=== PATIENT | male | born 1975 | race Caucasian/White ===

== ENCOUNTER 2017-01-31 06:39 | Emergency (ER) | payer OTHER, BC ==
[~2017-01-31] VITALS: Ht 172.7 cm; Wt 78.0 kg
[2017-01-31 06:46] VITALS: TEMP 36.4; Ht 172.7 cm; Wt 78.0 kg
[2017-01-31] MEDS ORDERED: MoRPHine SULFATE 10 MG/ML CARP/VIAL IV PRN (07:00)
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
[2017-01-31 07:18] LABS: HEMATOCRIT 48.4 % (42-52); MEAN CELL VOLUME 89.1 fL (80-100); MEAN CORPUSCULAR HEMOGLOBIN 29.3 pg (25-34); MEAN CORPUSCULAR HGB CONC 32.9 g/dl (32-36); MEAN PLATELET VOLUME 9.9 fL (7.4-10.4); PLATELET COUNT 202 K/uL (130-400); RED BLOOD COUNT 5.43 M/uL (4.7-6.1); WHITE BLOOD COUNT 10.42 K/uL (4.8-10.8)
[2017-01-31 07:25] VITALS: O2SAT 96
[2017-01-31 07:34] LABS: BUN/CREATININE RATIO 13.2 (10-20); CALCIUM 8.5 mg/dl (8.5-10.1); CREATININE 1.2 mg/dl (0.60-1.40); POTASSIUM 4.8 mmol/L (3.5-5.1)
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
[2017-01-31] MEDS ORDERED: LIDOCAINE/EPINEPH/TETRACAINE 1 EA SYR ONE (09:01)
[2017-01-31 09:21] LABS: URINE APPEARANCE CLEAR (CLEAR); URINE BILIRUBIN NEG (NEG); URINE COLOR YELLOW; URINE NITRITE NEG (NEG); URINE PH 7.5 (4.5-7.5); UROBILINOGEN NEG (NEG); ZZUR CULT IF INDIC CLEAN CATCH NO
[2017-01-31 09:24] LABS: MANUAL MICROSCOPIC REQUIRED? NO; REVIEW REQ? NO
[2017-01-31] MEDS ORDERED: OPTIRAY 320 IV PRN ×2 (09:30)
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
[2017-01-31] MEDS ORDERED: IBUP-1450 PO (10:50)
[2017-01-31 11:05] VITALS: BP 124/83; PULSE 100; O2SAT 97
[2017-02-13] MEDS ORDERED: CALC1TAB9 PO (14:26)
[2017-02-14] MEDS ORDERED: OXYC-57 PO (09:05)
== END 2017-01-31 11:05 | disposition home or self-care (01) ==
LOC: C.EDB 06:41
DX: S42.024A Nondisplaced fracture of shaft of right clavicle, initial encounter for closed fracture (principal); T14.8 Other injury of unspecified body region; V20.4XXA Motorcycle driver injured in collision with pedestrian or animal in traffic accident, initial encounter; Y92.488 Other paved roadways as the place of occurrence of the external cause; Z80.9 Family history of malignant neoplasm, unspecified; Z83.3 Family history of diabetes mellitus; Z82.49 Family history of ischemic heart disease and other diseases of the circulatory system; Z84.1 Family history of disorders of kidney and ureter

== ENCOUNTER → 2017-02-01 | Outpatient (CLI) | payer OTHER, BC ==
[~2017-02-01] MED LIST: CALC1TAB9 PO; IBUP-1450 PO; OXYC-57 PO
== END | disposition home or self-care (01) ==
LOC: C.RDSM 09:57
PROVIDERS: ATTEND Physical Medicine & Rehabilitation Sports Medicine
DX: S42.021A Displaced fracture of shaft of right clavicle, initial encounter for closed fracture (principal); X58.XXXA Exposure to other specified factors, initial encounter

== ENCOUNTER → 2017-02-12 | Outpatient (CLI) | payer OTHER, BC | END | disposition home or self-care (01) | LOC: C.RDSM 12:01 | PROVIDERS: ATTEND Physical Medicine & Rehabilitation Sports Medicine | DX: S42.001A Fracture of unspecified part of right clavicle, initial encounter for closed fracture (principal); M25.532 Pain in left wrist; R10.2 Pelvic and perineal pain; V29.9XXA Motorcycle rider (driver) (passenger) injured in unspecified traffic accident, initial encounter ==

== ENCOUNTER → 2017-02-14 | Day surgery (SDC) | payer OTHER, BC ==
[2017-02-13 14:26] VITALS: Ht 172.7 cm; Wt 77.3 kg
[~2017-02-14] VITALS: Ht 172.7 cm; Wt 77.3 kg
[~2017-02-14] MED LIST changes: +ATROPINE SULFATE 0.1 MG/ML 5ML SYR IV PRN; +BUPIVACAINE 0.5 % 5 MG/1 ML MPF 30ML VIAL ONE; +BUPIVACAINE/EPINEPHRINE 0.5% MPF 1:200,000 10 ML VIAL ONE; +CEFAZOLIN 2000 MG/60 ML D5W IV SCH; +CEFAZOLIN SOD 1 GM VIAL ONE; +CEFAZOLIN SOD 1000MG/55 ML D5W IV SCH; +DEXAMETHASONE SOD INJ 4 MG/ML VIAL ONE; +EpHEDrine SULFATE INJ 50 MG/ML AMP IV PRN; +FENTANYL CITRATE INJ 50 MCG/1 ML 2 ML VIAL IV PRN; +FENTANYL CITRATE INJ 50 MCG/1 ML 2 ML VIAL ONE; +GLYCOPYRROLATE INJ 0.2 MG/ML VIAL ONE; +HYDROmorphone INJ 0.5 MG/0.5 ML SYR IV PRN; -IBUP-1450 PO; +LACTATED RINGER'S 1000ML 1,000 ML IV SCH; +MIDAZOLAM HCL 1 MG/ML 2ML VIAL ONE; +NEOSTIGMINE METHYLSULFATE 5 MG/5 ML SYR ONE; +ONDANSETRON INJ 2 MG/ML 2 ML VIAL IV PRN; +ONDANSETRON INJ 2 MG/ML 2 ML VIAL ONE; +OXYCODONE/ACETAMINOPHEN 5-325 TAB PO PRN; +PHENYLEPHRINE HCL INJ 10 MG/ML VIAL ONE; +POVIDONE-IODINE OP SOLN 30 ML BTL ONE; +PROMETHAZINE HCL INJ 6.25 MG in SODIUM CHLORIDE 0.9% 50ML 50 ML IV PRN; +PROPOFOL IV EMULSION 10 MG/ML 20 ML VIAL IV ONE; +SODIUM CHLORIDE 0.9% 1000ML 1,000 ML IV SCH
--- NOTE | 2017-02-14 09:03 | Discharge Instructions-SurgCtr ---
Discharge Instructions Date of Service Feb 14, 2017. Visit Reason for Visit: Right Clavicle Fracture Discharge Discharge Diagnosis / Problem: right clavicle fracture Discharge Goals Goal(s): Decrease discomfort, Improve function, Increase independence Activity Recommendations Activity Limitations: per Instructions/Follow-up section Weightbearing Status: Right non-weightbearing (right upper extremity) Anesthesia . Post Anesthesia Instructions: If you have had General Anesthesia or IV Sedation: * Do not drive today. * Resume driving when surgeon permits. * Do not make important decisions or sign legal documents today. * Call surgeon for: 1. Temperature elevations greater than 101 degrees F. 2. Uncontrollable pain. 3. Excessive bleeding. 4. Persistent nausea and vomiting. 5. Medication intolerance (nausea, vomiting or rash). * For nausea and vomiting use only clear liquids such as: tea, soda, bouillon until nausea subsides, then gradually increase diet as tolerated. * If you have any concerns or questions, call your surgeon's office. If physician is unavailable and it is an emergency, call 911 or go to the nearest emergency room. . Instructions / Follow-Up Instructions / Follow-Up DIET: * Resume previous diet. MEDICATIONS: * Please take your prescriptions as instructed at your pre-op appointment and/ or see medication discharge instructions listed above. * If concerns develop, call your physician's office at . SPECIAL CARE INSTRUCTIONS: * Ice to right shoulder as needed for pain/swelling * Elevate right hand above heart to relieve swelling * Keep sling on for comfort. Wear sling when sleeping and walking * No pushing, pulling, lifting with right arm * Okay to do gentle range of motion of right elbow, fingers, and wrist. * Keep dressing clean, dry, intact. * No driving until instructed by your physician. * Your surgical extremity may be discolored due to prepping agents used on the skin. A bluish-green tint is a normal variant and should not cause alarm. Call your doctor at [phone] if: * Temperature above 101 degrees * Pain not relieved by pain medicine ordered * There is increased drainage or redness from any incision * You have any unanswered questions, problems or concerns. FOLLOW UP VISIT: * If not already scheduled, please call the office at to schedule a follow-up appointment. * You will start physical therapy on 02/18/17 at 8:30 a.m. * You have a post op appointment with Vesta Ponce PA-C on 03/01/17 at 2:15 p.m. Diet Recommendations Home Diet: no limitations, resume previous diet Pending Studies Studies pending at discharge: no Medical Emergencies . Who to Call and When: Medical Emergencies: If at any time you feel your situation is an emergency, please call 911 immediately. . Non-Emergent Contact Non-Emergency issues call your: Surgeon Call Non-Emergent contact if: temperature is above 101, your pain is not controlled, your pain is concerning you, wound has increased drainage, wound has increased redness, wound has increased pain, you have any medication questions . . "Provider Documentation" section prepared by Vesta Ponce. . [place] Drug Monitoring Program Search Results: patient reviewed within database, no issues identified
--- NOTE | 2017-02-14 09:03 | History & Physical Bridge Note ---
H&P Re-Evaluation Bridge Note: I have examined the patient, reviewed the History & Physical and in the interval since the performance of the History & Physical I have noted the following changes of clinical significance: No changes noted
--- NOTE | 2017-02-14 12:26 | [facility] Post Operative Brief Note ---
Immediate Operative Summary Operative Date Feb 14, 2017. Pre-Operative Diagnosis Right Clavicle Fracture Post-Operative Diagnosis same Procedure(s) Performed Right Clavicle Open Reduction Internal Fixation Surgeon Dr. Jignesh Talbert Service Superintendent Surgeon(s) Dr. Garcia Cárdenas, Yuki Ponce PA-C Estimated Blood Loss 20cc Findings comminuted clavicle fracture Specimens none Drains 0 Anesthesia general with block Complication(s) None Disposition Recovery Room / PACU
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
[2017-02-14 13:38] VITALS: TEMP 36.8
--- NOTE | 2017-02-14 14:16 | Anesthesia Progress Nt - [facility] ---
Anesthesia Post Op Note Date & Time Feb 14, 2017 at 14:16 Vital Signs Pain Intensity: 0 Vital Signs Past 12 Hours Date Time Temp Pulse Resp B/P (MAP) Pulse Ox O2 Delivery O2 Flow Rate FiO2 02/14/17 13:38 36.8 94 16 123/84 (97) 94 Room Air 02/14/17 13:33 92 7 02/14/17 13:33 91 7 96 02/14/17 13:30 116/79 02/14/17 13:28 36.8 86 12 126/79 98 Room Air 02/14/17 13:28 85 6 02/14/17 13:28 87 6 97 02/14/17 13:27 87 6 02/14/17 13:27 87 6 98 02/14/17 13:25 126/79 02/14/17 13:22 98 22 02/14/17 13:22 95 22 95 02/14/17 13:20 120/82 02/14/17 13:17 83 20 02/14/17 13:17 84 20 97 02/14/17 13:16 117/86 02/14/17 13:12 79 18 95 02/14/17 13:12 80 18 02/14/17 13:10 117/84 02/14/17 13:07 99 21 95 02/14/17 13:07 96 21 02/14/17 13:05 121/78 02/14/17 13:02 85 18 100 02/14/17 13:02 85 18 02/14/17 13:00 116/80 02/14/17 12:57 88 18 02/14/17 12:57 90 18 100 02/14/17 12:55 124/81 02/14/17 12:52 96 15 100 02/14/17 12:52 95 15 02/14/17 12:50 124/86 02/14/17 12:48 128/84 02/14/17 12:47 89 02/14/17 12:47 36.7 88 14 128/84 100 Diffusion Mask 6 02/14/17 12:47 89 100 02/14/17 09:25 95 13 121/73 100 02/14/17 09:25 95 13 02/14/17 09:20 88 11 02/14/17 09:20 90 11 119/75 100 02/14/17 09:15 63 10 127/79 100 02/14/17 09:15 65 10 02/14/17 09:11 135/84 02/14/17 09:10 84 18 02/14/17 09:10 83 18 100 02/14/17 09:05 73 15 02/14/17 09:05 75 15 119/80 98 02/14/17 09:00 77 02/14/17 09:00 77 99 02/14/17 08:55 79 98 02/14/17 08:55 78 02/14/17 08:50 81 99 02/14/17 08:50 80 02/14/17 08:45 73 02/14/17 08:45 71 98 02/14/17 08:40 85 02/14/17 08:40 84 98 02/14/17 08:35 82 99 02/14/17 08:35 86 02/14/17 08:30 81 99 02/14/17 08:30 82 02/14/17 08:25 69 02/14/17 08:25 69 98 02/14/17 08:20 86 98 02/14/17 08:20 87 02/14/17 08:15 78 99 02/14/17 08:15 78 02/14/17 08:10 76 02/14/17 08:10 77 100 02/14/17 08:05 76 02/14/17 08:05 70 99 02/14/17 08:01 121/82 02/14/17 08:00 69 99 02/14/17 08:00 70 02/14/17 07:55 74 99 02/14/17 07:55 76 02/14/17 07:06 36.7 78 16 118/83 (95) 100 Room Air Notes Mental Status: alert / awake / arousable, participated in evaluation Pt Amnestic to Procedure: Yes Nausea / Vomiting: adequately controlled Pain: adequately controlled Airway Patency, RR, SpO2: stable & adequate BP & HR: stable & adequate Hydration State: stable & adequate Anesthetic Complications: no major complications apparent
[2017-02-14 15:29] VITALS: BP 124/80; PULSE 105; O2SAT 99
== END | disposition home or self-care (01) ==
LOC: X.SURG 06:51
PROVIDERS: ATTEND Physical Medicine & Rehabilitation Sports Medicine
DX: S42.001A Fracture of unspecified part of right clavicle, initial encounter for closed fracture (principal); V20.4XXA Motorcycle driver injured in collision with pedestrian or animal in traffic accident, initial encounter; Y92.488 Other paved roadways as the place of occurrence of the external cause; Z83.3 Family history of diabetes mellitus; Z82.49 Family history of ischemic heart disease and other diseases of the circulatory system; Z80.3 Family history of malignant neoplasm of breast; Z82.3 Family history of stroke

== ENCOUNTER → 2017-03-01 | Outpatient (CLI) | payer OTHER, BC ==
[~2017-03-01] MED LIST changes: -ATROPINE SULFATE 0.1 MG/ML 5ML SYR IV PRN; -BUPIVACAINE 0.5 % 5 MG/1 ML MPF 30ML VIAL ONE; -BUPIVACAINE/EPINEPHRINE 0.5% MPF 1:200,000 10 ML VIAL ONE; -CEFAZOLIN 2000 MG/60 ML D5W IV SCH; -CEFAZOLIN SOD 1 GM VIAL ONE; -CEFAZOLIN SOD 1000MG/55 ML D5W IV SCH; -DEXAMETHASONE SOD INJ 4 MG/ML VIAL ONE; -EpHEDrine SULFATE INJ 50 MG/ML AMP IV PRN; -FENTANYL CITRATE INJ 50 MCG/1 ML 2 ML VIAL IV PRN; -FENTANYL CITRATE INJ 50 MCG/1 ML 2 ML VIAL ONE; -GLYCOPYRROLATE INJ 0.2 MG/ML VIAL ONE; -HYDROmorphone INJ 0.5 MG/0.5 ML SYR IV PRN; -LACTATED RINGER'S 1000ML 1,000 ML IV SCH; -MIDAZOLAM HCL 1 MG/ML 2ML VIAL ONE; -NEOSTIGMINE METHYLSULFATE 5 MG/5 ML SYR ONE; -ONDANSETRON INJ 2 MG/ML 2 ML VIAL IV PRN; -ONDANSETRON INJ 2 MG/ML 2 ML VIAL ONE; -OXYCODONE/ACETAMINOPHEN 5-325 TAB PO PRN; -PHENYLEPHRINE HCL INJ 10 MG/ML VIAL ONE; -POVIDONE-IODINE OP SOLN 30 ML BTL ONE; -PROMETHAZINE HCL INJ 6.25 MG in SODIUM CHLORIDE 0.9% 50ML 50 ML IV PRN; -PROPOFOL IV EMULSION 10 MG/ML 20 ML VIAL IV ONE; -SODIUM CHLORIDE 0.9% 1000ML 1,000 ML IV SCH
--- NOTE | 2017-03-01 14:59 | DIAGNOSTIC IMAGING REPORT ---
RIGHT CLAVICLE COMPLETE HISTORY:41 yearsMaleRIGHT CLAVICLE FX. Follow-up exam. COMPARISON: Spot fluoroscopic images of the right clavicle 02/14/2017 TECHNIQUE: 2 views of the right clavicle. FINDINGS: Plate and screw fixation fixating a mid shaft clavicular fracture is redemonstrated. There is mild healing callus at the fracture site. Alignment is satisfactory. The hardware appears intact without fracture or loosening. There is mild degenerative change of the right AC joint. Imaged right lung kenyon are clear. IMPRESSION: Prior ORIF of aligned right midshaft clavicular fracture with mild healing callus. The above report was generated using voice recognition software. It may contain grammatical, syntax or spelling errors. Electronically signed by: Matthew Bang 03/01/2017 2:57 PM Dictated Date/Time: 03/01/2017 2:54 PM
== END | disposition home or self-care (01) ==
LOC: C.RDSM 14:50
PROVIDERS: ATTEND Physician Assistant
DX: S42.021D Displaced fracture of shaft of right clavicle, subsequent encounter for fracture with routine healing (principal); X58.XXXA Exposure to other specified factors, initial encounter

== ENCOUNTER → 2017-03-07 | Outpatient (CLI) | payer BC, OTHER ==
--- NOTE | 2017-03-07 08:26 | DIAGNOSTIC IMAGING REPORT ---
LEFT WRIST W/NAVICULAR MIN 3 VIEWS CLINICAL HISTORY: LEFT WRIST PAIN S/P MCA pain COMPARISON: None. DISCUSSION: The bones and joint spaces appear intact. There is no evidence of fracture, dislocation or bony disease. There is no evidence for soft tissue swelling. IMPRESSION: Negative study. Electronically signed by: Slick Bird M.D. 03/07/2017 8:25 AM Dictated Date/Time: 03/07/2017 8:24 AM
== END | disposition home or self-care (01) ==
LOC: C.RDSM 13:37
PROVIDERS: ATTEND Physician Assistant
DX: M25.532 Pain in left wrist (principal)

== ENCOUNTER → 2017-03-27 | Outpatient (CLI) | payer BC ==
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
--- NOTE | 2017-03-27 16:58 | DIAGNOSTIC IMAGING REPORT ---
LEFT WRIST W/NAVICULAR MIN 3 VIEWS CLINICAL HISTORY: RIGHT CLAVICLE FX AND LEFT WRIST PAIN COMPARISON: None. DISCUSSION: The bones and joint spaces appear intact. There is no evidence of fracture, dislocation or bony disease. There is no evidence for soft tissue swelling. IMPRESSION: Negative study. The above report was generated using voice recognition software. It may contain grammatical, syntax or spelling errors. Electronically signed by: Slick Bird M.D. 03/27/2017 4:57 PM Dictated Date/Time: 03/27/2017 4:56 PM
== END | disposition home or self-care (01) ==
LOC: C.RDSM 16:15
PROVIDERS: ATTEND Physician Assistant
DX: S42.021D Displaced fracture of shaft of right clavicle, subsequent encounter for fracture with routine healing (principal); X58.XXXD Exposure to other specified factors, subsequent encounter; M25.532 Pain in left wrist

== ENCOUNTER → 2017-05-10 | Outpatient (CLI) | payer BC | END | disposition home or self-care (01) | LOC: C.RDSM 13:45 | PROVIDERS: ATTEND Physical Medicine & Rehabilitation Sports Medicine | DX: R10.2 Pelvic and perineal pain (principal); S42.021D Displaced fracture of shaft of right clavicle, subsequent encounter for fracture with routine healing; X58.XXXD Exposure to other specified factors, subsequent encounter ==

== ENCOUNTER → 2017-08-02 | Outpatient (CLI) | payer BC ==
[~2017-08-02] MED LIST changes: +OPTIRAY 320 IV PRN
--- NOTE | 2017-08-02 08:14 | DIAGNOSTIC IMAGING REPORT ---
CT OF THE CHEST WITH IV CONTRAST CLINICAL HISTORY: LUNG NODULE COMPARISON STUDY: Chest x-ray dated 01/31/2017 , CT scan of the abdomen pelvis dated 01/31/2017 TECHNIQUE: Following the IV administration of 93 mL of Optiray-320, CT of the thorax was performed from the thoracic inlet to the lung bases. Images are reviewed in the axial, sagittal, and coronal planes. IV contrast was administered without complication. A dose lowering technique was utilized adhering to the principles of ALARA. CT DOSE: 323.56 mGy.cm FINDINGS: Thyroid: Imaged portions of the thyroid gland are normal in appearance. Thoracic aorta: The thoracic aorta is normal in course and caliber, noting standard 3-vessel arch anatomy. No aneurysm or dissection is seen. Pulmonary vasculature: The pulmonary trunk is normal in caliber. There are no central filling defects identified to suggest pulmonary embolus. Note that this examination was not protocoled for the evaluation of pulmonary emboli. HEART: The heart is normal in size and configuration, without pericardial effusion. Lungs and pleural spaces: There are no pleural effusions. There is a stable 5 x 7 mm solid right lower lobe pulmonary nodule (image #[id number]). Also evident is a 2 mm solid right upper lobe pulmonary nodule as visualized in image #[id number]. There is no focal pulmonary consolidation. Mediastinum: There is no mediastinal lymphadenopathy. Zeynep: There is no evidence of pathologic hilar adenopathy Axilla: There is no evidence of pathologic axillary lymphadenopathy Upper abdomen: There is a stable 19 mm hypodense nodule within the lateral segment of the left lobe of the liver. This demonstrates equivocal peripheral nodular enhancement Skeletal structures: There are no lytic or blastic osseous lesions. IMPRESSION: 1. Stable 5 x 7 mm solid right lower lobe pulmonary nodule. A 12 month follow-up CT per Fleischner criteria is recommended. 2. Stable 19 mm hypodense nodule within the lateral segment of the left lobe of the liver Electronically signed by: Jeff Hernandez M.D. 08/02/2017 8:12 AM Dictated Date/Time: 08/02/2017 8:03 AM
== END | disposition home or self-care (01) ==
LOC: C.CTS 07:44
PROVIDERS: ATTEND Family Medicine
DX: R91.1 Solitary pulmonary nodule (principal)